=== PATIENT | female | born 1995 | race Hispanic/Latino ===

== ENCOUNTER 2018-09-21 14:18 | Emergency (ER) | payer BC, OTHER ==
[~2018-09-21] VITALS: Ht 154.9 cm; Wt 59.0 kg
== END 2018-09-21 16:50 | disposition home or self-care (01) ==
LOC: FSED 14:18
DX: R10.13 Epigastric pain (principal); R10.12 Left upper quadrant pain; R11.0 Nausea; K29.00 Acute gastritis without bleeding
CPT/HCPCS: 81003; 81025; 99282

== ENCOUNTER 2023-01-10 22:53 | Emergency (ER) | payer OTHER ==
[~2023-01-10] VITALS: Ht 154.9 cm; Wt 59.0 kg
[2023-01-10] MEDS ORDERED: SODIUM CHLORIDE 0.9% 1000ML 1,000 ML IV STA (23:34)
[2023-01-10] MEDS ORDERED: ONDANSETRON HCL INJ 2MG/ML 2ML 2 MG/ML VIAL IV STA (23:34)
[2023-01-10] MEDS ORDERED: FAMOTIDINE 20 MG/2 ML VIAL IV STA (23:34)
[2023-01-11 00:28] LABS: BASOPHILS # (AUTO) 0.1 (0.0-0.1); EOSINOPHILS # (AUTO) 0.5 (0.0-0.4); EOSINOPHILS % 5.3 % (0.0-6.0); HEMATOCRIT 42.3 % (34.2-44.1); HEMOGLOBIN 13.6 g/dL (12.0-16.0); LYMPHOCYTES # (AUTO) 2.1 (1.0-3.2); LYMPHOCYTES % 22.2 % (18.0-39.1); MEAN CORPUSCULAR HEMOGLOBIN 24.7 pg (28-32); MEAN CORPUSCULAR HGB CONC 32.2 g/dL (31-35); MEAN CORPUSCULAR VOLUME 76.9 fL (81-99); MONOCYTES % 10.6 % (4.4-11.3); NEUTROPHILS # (AUTO) 5.6 (2.1-6.9); NEUTROPHILS % 60.7 % (38.7-80.0); PLATELET COUNT 308 x10e3/uL (140-360); RED CELL DISTRIBUTION WIDTH 19.4 % (11.7-14.4)
[2023-01-11 00:53] LABS: ALBUMIN 4.4 g/dL (3.5-5.0); ALBUMIN/GLOBULIN RATIO 1.1 (0.8-2.0); ANION GAP 20.9 mmol/L (8-16); CALCIUM 9.9 mg/dL (8.4-10.2); CREATININE, SERUM 0.86 mg/dL (0.57-1.11)
[2023-01-11 00:56] LABS: POTASSIUM 2.9 mmol/L (3.5-5.1)
[2023-01-11] MEDS ORDERED: POTASSIUM CHLORIDE 20 MEQ TAB CR PO STA (01:05)
[2023-01-11] MEDS ORDERED: IOPAMIDOL 370 MG/ML 100 ML INFUS..BTL INJ ONE (01:15)
[2023-01-11] MEDS ORDERED: POTASSIUM CHLORIDE 10MEQ/100ML 100 ML IV ONE (01:15)
[2023-01-11] MEDS ORDERED: POTASSIUM CHLORIDE 20MEQ/15ML UDC PO ONE (02:30)
[2023-01-11] MEDS ORDERED: KCL 20 MEQ PACKET/ ORAL SOLN ONE (02:39)
[2023-01-11] MEDS ORDERED: SODIUM CHLORIDE 0.9% 500ML 500 ML ONE (02:53)
[2023-01-11] MEDS ORDERED: KCL 20 MEQ PACKET/ ORAL SOLN PO ONE (03:00)
[2023-01-11 03:40] LABS: COLOR,URINE YELLOW (YELLOW)
[2023-01-11 03:41] LABS: CLARITY,URINE CLOUDY (CLEAR); KETONES,URINE 2+ (NEGATIVE); LEUKOCYTE ESTERASE ,URINE NEGATIVE (NEGATIVE); NITRITE,URINE NEGATIVE (NEGATIVE); PROTEIN,URINE DIPSTICK 1+ (NEGATIVE); URINE UROBILINOGEN 0.2 mg/dL (0.2 - 1)
[2023-01-11 03:48] LABS: BACTERIA,URINE MANY /HPF; EPITHELIAL CELLS,URINE MANY /LPF; MUCUS,URINE MANY (RARE); WBC,URINE (MAN) 21-50 /HPF (0-5)
[2023-01-11 04:28] VITALS: BP 124/73; PULSE 87; RESP 18; TEMP 98.7; O2SAT 100
== END 2023-01-11 04:36 | disposition home or self-care (01) ==
LOC: ER 23:35
DX: R10.13 Epigastric pain (principal); E87.6 Hypokalemia; R11.2 Nausea with vomiting, unspecified; Z98.84 Bariatric surgery status
CPT/HCPCS: 36415; 74177; 80053; 81001; 83690; 84702; 85025; 99284; J2405; J3480; J7030; J7040; Q9967

== ENCOUNTER → 2023-12-15 | Day surgery (SDC) | payer OTHER ==
[2023-12-13 15:35] LABS: BASOPHILS # (AUTO) 0.1 (0.0-0.1); EOSINOPHILS # (AUTO) 0.2 (0.0-0.4); EOSINOPHILS % 2.9 % (0.0-6.0); HEMATOCRIT 32.6 % (34.2-44.1); HEMOGLOBIN 10.9 g/dL (12.0-16.0); MEAN CORPUSCULAR HEMOGLOBIN 28.1 pg (28-32); MEAN CORPUSCULAR HGB CONC 33.4 g/dL (31-35); MONOCYTES # (AUTO) 0.6 (0.2-0.8); MONOCYTES % 9.6 % (4.4-11.3); NEUTROPHILS # (AUTO) 3.1 (2.1-6.9); NEUTROPHILS % 52.5 % (38.7-80.0); PLATELET COUNT 293 x10e3/uL (140-360); RED BLOOD COUNT 3.88 x10e6/uL (3.6-5.1); RED CELL DISTRIBUTION WIDTH 13.5 % (11.7-14.4); WHITE BLOOD COUNT 5.83 x10e3/uL (4.8-10.8)
[2023-12-13 15:39] LABS: CLARITY,URINE SL CLOUDY (CLEAR); COLOR,URINE AMBER (YELLOW); GLUCOSE, URINE NEGATIVE (NEGATIVE); KETONES,URINE 1+ (NEGATIVE); LEUKOCYTE ESTERASE ,URINE NEGATIVE (NEGATIVE); NITRITE,URINE NEGATIVE (NEGATIVE); PH,URINE 6 (5 - 7); PROTEIN,URINE DIPSTICK NEGATIVE (NEGATIVE)
[2023-12-13 15:40] LABS: BILIRUBIN,URINE SMALL (NEGATIVE); URINE UROBILINOGEN 2 mg/dL (0.2 - 1)
[2023-12-13 16:04] LABS: ALBUMIN 3.6 g/dL (3.5-5.0); ALBUMIN/GLOBULIN RATIO 1.2 (0.8-2.0); BILIRUBIN,TOTAL 0.4 mg/dL (0.2-1.2); CALCIUM 9.1 mg/dL (8.4-10.2); CREATININE, SERUM 0.82 mg/dL (0.57-1.11); TOTAL PROTEIN 6.7 g/dL (6.5-8.1)
[~2023-12-15] MED LIST: AMOX TR-K CLV1 EAC2 PO; BUPIVACAINE 0.25% 30ML SDV ONE; DEXAMETHASONE SOD PHOS INJ 4 MG/ML SDV ONE; DICYCLOMINE HCL20 MG PO; FAMOTIDINE 20 MG/2 ML VIAL IV ONE; FENTANYL CITRATE/PF 100MCG/2 ML INJ ONE; HYDROCODONE/APAP 7.5MG-325MG 1 EA TAB ONE; KETOROLAC TROMETHAMINE 30 MG/ML VIAL ONE; LACTATED RINGER'S 1,000 ML ONE; LEVSIN0.125 MG PO; LIDOCAINE HCL 2% LOCAL INJ 5 ML SDV VIAL INJ ONE; ONDANSETRON HCL INJ 2MG/ML 2ML 2 MG/ML VIAL ONE; ONDANSETRON ODT4 MG PO; PEPCID20 MG PO; PROPOFOL IV EMULSION 10 MG/ML 20 ML VIAL ONE; SEVOFLURANE INHAL SOLN 250 ML PEN BTL ONE; TYLENOL W/CODEINE PO
[2023-12-15] MEDS: LACTATED RINGER'S 1,000 ML BAG IV ONE (10:20)
[2023-12-15 14:13] VITALS: TEMP 97.1
[2023-12-15] MEDS: KETOROLAC TROMETHAMINE 30 MG/ML VIAL IV ONE (14:30)
[2023-12-15] MEDS: HYDROCODONE/APAP 7.5MG-325MG 1 EA TAB PO ONE (15:10)
[2023-12-15 15:30] VITALS: BP 121/83; PULSE 74; RESP 16; O2SAT 100
== END | disposition home or self-care (01) ==
LOC: OR 09:31
PROVIDERS: ATTEND Surgery
DX: K80.10 Calculus of gallbladder with chronic cholecystitis without obstruction (principal); D64.9 Anemia, unspecified; K21.9 Gastro-esophageal reflux disease without esophagitis; N20.0 Calculus of kidney; F41.9 Anxiety disorder, unspecified; F32.A Depression, unspecified; Z01.812 Encounter for preprocedural laboratory examination
CPT/HCPCS: 36415; 47562; 80053; 81003; 81025; 85025; 88304; C1766; J1100; J1885; J2001; J2405; J2704; J3010; J7121